=== PATIENT | male | born 1960 | race Asian ===

== ENCOUNTER 2019-09-07 16:08 | Emergency (ER) | payer OTHER ==
[~2019-09-07] VITALS: Ht 180.3 cm; Wt 113.4 kg
[2019-09-07 16:08] VITALS: BP 121/77; TEMP 97.7
[2019-09-07 17:03] LABS: PLATELET COUNT 269 K/uL (142-355)
[2019-09-07] MEDS ORDERED: PANTOPRAZOLE 40MG TA PO (17:38)
[2019-09-07] MEDS ORDERED: LIPITOR40 MG PO (17:40)
[2019-09-07] MEDS ORDERED: BACLOFEN20 MG PO (17:41)
[2019-09-07] MEDS ORDERED: DOCU100C10 PO (17:41)
[2019-09-07] MEDS ORDERED: FENOFIBRATE160 MG PO (17:41)
[2019-09-07] MEDS ORDERED: GRALISE600 MG PO (17:42)
[2019-09-07] MEDS ORDERED: XALATAN0.005 % OPTH (17:44)
[2019-09-07] MEDS ORDERED: METF500T PO (17:45)
[2019-09-07] MEDS ORDERED: METH5TAB6 PO (17:46)
[2019-09-07] MEDS ORDERED: PULMICORT90 MCG/ACT INH (17:47)
[2019-09-07] MEDS ORDERED: SEROQUEL200 MG PO (17:48)
[2019-09-07] MEDS ORDERED: TRIHEXYPHEN2 MG PO (17:48)
[2019-09-07] MEDS ORDERED: VITAMIN D31000 UNI1 PO (17:49)
[2019-09-07] MEDS ORDERED: ASPIRIN 81 LOW81 MG PO (17:50)
[2019-09-07] MEDS ORDERED: LEVE500T5 PO (17:51)
[2019-09-12] MEDS ORDERED: CYAN10009 IM (17:01)
[2019-09-12] MEDS ORDERED: QUET100T2 PO (17:01)
[2019-09-12] MEDS ORDERED: FOLI1TAB26 PO (17:01)
[2019-09-12] MEDS ORDERED: DIVALPROEX500 MG PO (17:02)
[2019-09-12] MEDS ORDERED: SEROQUEL200 MG PO (17:02)
== END 2019-09-07 16:46 | disposition still patient (30) ==
LOC: ED 16:23
PROVIDERS: Emergency Medicine Emergency Medical Services
DX: F20.89 Other schizophrenia (principal); Z04.6 Encounter for general psychiatric examination, requested by authority
CPT/HCPCS: 80053; 85027; 99285

== ENCOUNTER 2020-08-07 20:55 | Emergency (ER) | payer OTHER ==
[~2020-08-07] VITALS: Ht 172.7 cm; Wt 105.7 kg
[2020-08-07 20:55] VITALS: BP 136/88; TEMP 99.3
[~2020-08-07 20:55] MED LIST: ASPIRIN 81 LOW81 MG PO; BACLOFEN20 MG PO; CYAN10009 IM; DIVALPROEX500 MG PO; DOCU100C10 PO; FENOFIBRATE160 MG PO; FOLI1TAB26 PO; GRALISE600 MG PO; LEVE500T5 PO; LIPITOR40 MG PO; METF500T PO; METH5TAB6 PO; PANTOPRAZOLE 40MG TA PO; PULMICORT90 MCG/ACT INH; QUET100T2 PO; SEROQUEL200 MG PO; TRIHEXYPHEN2 MG PO; VITAMIN D31000 UNI1 PO; XALATAN0.005 % OPTH
[2020-08-07 21:46] LABS: PLATELET COUNT 213 K/uL (142-355)
[2020-08-07 21:57] LABS: POTASSIUM 4.2 mmol/L (3.6-5.2)
[2020-08-07] MEDS ORDERED: ACETAMINOPHEN COD PO (23:11)
[2020-08-07] MEDS ORDERED: BENZ1TAB43 PO (23:24)
[2020-08-07] MEDS ORDERED: HALO5TAB10 PO (23:26)
[2020-08-07] MEDS ORDERED: IBU800 MG PO (23:29)
[2020-08-07] MEDS ORDERED: HYDR5TAB9 PO (23:31)
[2020-08-07] MEDS ORDERED: ASCORBIC ACID PO (23:37)
== END 2020-08-07 22:26 | disposition other institution (70) ==
LOC: ED 20:55
PROVIDERS: Family Medicine
DX: R46.89 Other symptoms and signs involving appearance and behavior (principal); F31.89 Other bipolar disorder; Z11.59 Encounter for screening for other viral diseases; Z04.6 Encounter for general psychiatric examination, requested by authority
CPT/HCPCS: 80053; 81000; 85027; 87635; 93005; 99285; U0003

== ENCOUNTER 2022-12-12 20:03 | Emergency (ER) | payer OTHER ==
[~2022-12-12] VITALS: Ht 175.3 cm; Wt 92.3 kg
[2022-12-12 20:03] VITALS: BP 158/89
[~2022-12-12 20:03] MED LIST changes: +ACETAMINOPHEN COD PO; +ASCORBIC ACID PO; +ASPI81TA4 PO; +BACL10TA4 PO; +BENZ1TAB43 PO; +BENZTROPINE0.5 MG PO; +CONGENTIN 1MG TAB PO; +DIVA250T PO; +DOK100 M1 PO; +GABA400C2 PO; -GRALISE600 MG PO; +HALO1TAB3 PO; +HALO2CON2 PO; +HALO50IN4 IM; +HALO5TAB10 PO; +HYDR5TAB9 PO; +IBU800 MG PO; +LACTSYP31 PO; +LACTULOSE PO; +LATA0.00 OPTH; +LORA0.5T17 PO; +NEURONTIN800 MG PO; +OLANZAPINE10 MG PO; +PAIN RELIEF EX500 MG PO; +SUPPLEMENT PO
[2022-12-13] MEDS ORDERED: HALOPERIDOL LACTATE PO (08:47)
[2022-12-13] MEDS ORDERED: HALO1TAB3 PO (08:50)
== END 2022-12-12 22:01 | disposition still patient (30) ==
LOC: ED 20:03
DX: R46.89 Other symptoms and signs involving appearance and behavior (principal); R45.1 Restlessness and agitation; Z04.6 Encounter for general psychiatric examination, requested by authority
CPT/HCPCS: 81002; 99283

== ENCOUNTER 2023-01-27 17:51 | Emergency (ER) | payer OTHER ==
[~2023-01-27] VITALS: Ht 175.3 cm; Wt 97.1 kg
[~2023-01-27 17:51] MED LIST changes: +HALOPERIDOL LACTATE PO
[2023-01-27 17:55] VITALS: BP 164/115; TEMP 97
[2023-01-27 18:37] LABS: PLATELET COUNT 315 K/uL (142-355)
[2023-01-27 18:48] LABS: POTASSIUM 3.7 mmol/L (3.6-5.2)
[2023-01-27] MEDS ORDERED: ASPIRIN 81 LOW81 MG PO (20:58)
[2023-01-27] MEDS ORDERED: DIPH50IN IM (20:58)
[2023-01-27] MEDS ORDERED: DQZATE100 MG PO (20:59)
[2023-01-27] MEDS ORDERED: RISPERDAL12.5 MG IM (21:00)
[2023-01-27] MEDS ORDERED: LATA0.00 OPTH (21:00)
[2023-01-27] MEDS ORDERED: SUPPLEMENT PO (21:01)
[2023-01-27] MEDS ORDERED: TEMA30CA18 PO (21:01)
[2023-01-27] MEDS ORDERED: LORA0.5T17 PO (21:02)
[2023-01-27] MEDS ORDERED: BUSPIRONE HYDRO10 MG PO (21:03)
[2023-01-27] MEDS ORDERED: LEVE500T5 PO (21:04)
[2023-01-27] MEDS ORDERED: LACTSYP31 PO (21:04)
[2023-01-27] MEDS ORDERED: QUETIAPINE200 MG PO (21:05)
[2023-01-27] MEDS ORDERED: TRILEPTAL300 MG PO (21:05)
[2023-01-27] MEDS ORDERED: GRALISE600 MG PO (21:06)
[2023-01-27] MEDS ORDERED: HYDRALAZINE25 MG PO (21:07)
[2023-01-27] MEDS ORDERED: HYDR5TAB9 PO (21:07)
[2023-01-27] MEDS ORDERED: PAIN RELIEF EX500 MG PO (21:08)
== END 2023-01-27 19:45 | disposition still patient (30) ==
LOC: ED 17:51
PROVIDERS: Emergency Medicine
DX: R46.89 Other symptoms and signs involving appearance and behavior (principal); Z11.52 Encounter for screening for COVID-19; Z04.6 Encounter for general psychiatric examination, requested by authority
CPT/HCPCS: 36415; 80053; 81002; 85027; 87635; 93005; 99283; U0003